=== PATIENT | male | born 1985 | race Two or more races ===

== ENCOUNTER 2017-07-31 20:40 | Emergency (ER) | payer SELFPAY ==
[~2017-07-31] VITALS: Ht 172.7 cm; Wt 90.7 kg
[2017-07-31] MEDS ORDERED: FLUORESCEIN OPHTH TEST STRIP. ONE (21:58)
[2017-07-31] MEDS ORDERED: TETRACAINE 0.5% OPHTH SOLUTION 4ML BOTTLE. ONE (21:58)
[2017-07-31] MEDS ORDERED: TETRACAINE 0.5% OPHTH SOLUTION 4ML BOTTLE. OS ONE (22:00)
[2017-07-31] MEDS ORDERED: EYE-STREAM OPHTH SOLUTION 120 ML BOTTLE. OS ONE (22:00)
[2017-07-31] MEDS ORDERED: FLUORESCEIN OPHTH TEST STRIP. OS ONE (22:00)
[2017-07-31] MEDS ORDERED: DIPHTH,PERTUSS(ACELL),TET TOX 0.5 ML DISP.SYRIN. VAX IM ONE (23:15)
[2017-07-31 23:50] VITALS: BP 119/79
--- NOTE | 2017-08-01 02:20 | ED.ADGEN ---
Past Medical History Past Medical History: No Pertinent History Past Surgical History: No Surgical History Alcohol Use: None Drug Use: None Adult General Chief Complaint Chief Complaint: EYE PROBLEMS HPI HPI Patient is a 31 year old man, with no significant past history, who takes no medications on a regular basis, who presents to the emergency department with a complaint of left eye pain and bleeding. Patient states that about 4 hours ago he was drilling a lock when the tip of the drill bit broke and was flung backwards striking him in the left eye. Patient states that he immediately noted swelling, pain, and blurred vision. He denies injuries to the right eye or any other injuries or complaints. He states that he was unable to drive initially blurred vision, which is why he took sometime presents the emergency department. He does not know his last tetanus booster. Patient denies taking any medications prior to coming to the ED. He states the pain is located in the medial aspect of his eye, and he does have a mild headaches surrounding this area. Denies any nausea or vomiting, any chest pain or short of breath, any dental or neck pain. Review of Systems Review of Systems Constitutional: Denies fever or chills. [] Eyes: Blurred vision in the left eye, left eye pain. HENT: Denies nasal congestion or sore throat. [] Respiratory: Denies cough or shortness of breath. [] Cardiovascular: Denies chest pain or edema. [] GI: Denies abdominal pain, nausea, vomiting, bloody stools or diarrhea. [] : Denies dysuria. [] Musculoskeletal: Denies back pain or joint pain. [] Integument: Denies rash. [] Neurologic: Denies headache, focal weakness or sensory changes. [] Endocrine: Denies polyuria or polydipsia. [] Lymphatic: Denies swollen glands. [] Psychiatric: Denies depression or anxiety. [] Current Medications Current Medications Current Medications Medications (Trade) Dose Ordered Sig/Hugo Start Time Stop Time Status Last Admin Dose Admin Balanced Salt Solution (Eye-Stream) 120 ml 1X ONCE 07/31/17 22:00 07/31/17 22:01 DC Diphtheria/ Tetanus/Acell Pertussis (Boostrix) 0.5 ml ONCE ONCE 07/31/17 23:15 07/31/17 23:16 DC 07/31/17 23:23 0.5 ML Fluorescein Sodium (Ful-Aimee) 1 strip STK-MED ONCE 07/31/17 21:58 07/31/17 21:59 DC Tetracaine HCl (Tetracaine) 40 drop STK-MED ONCE 07/31/17 21:58 07/31/17 21:59 DC Allergies Allergies Allergies Coded Allergies Type Severity Reaction Last Updated Verified No Known Drug Allergies 07/31/17 No Physical Exam Physical Exam Constitutional: Well developed, well nourished, no acute distress, non-toxic appearance. [] HENT: Normocephalic, atraumatic, bilateral external ears normal, oropharynx moist, no oral exudates, nose normal. [] Eyes: PERRLA, EOMI, patient with irritation of the conjunctiva, with half centimeter vertical laceration noted to the medial aspect of the cornea. No other abnormalities identified, no evidence of foreign body noted. Negative Clark sign. Patient's vision is 20/20 in the right eye, and 20/50 in the left. There is no active bleeding or other signs of evolving changes at this time. Neck: Normal range of motion, no tenderness, supple, no stridor. [] Cardiovascular:Heart rate regular rhythm, no murmur [] Lungs & Thorax: Bilateral breath sounds clear to auscultation [] Abdomen: Bowel sounds normal, soft, no tenderness, no masses, no pulsatile masses. [] Skin: Warm, dry, no erythema, no rash. [] Back: No tenderness, no CVA tenderness. [] Extremities: No tenderness, no cyanosis, no clubbing, ROM intact, no edema. [] Neurologic: Alert and oriented X 3, normal motor function, normal sensory function, no focal deficits noted. [] Psychologic: Affect normal, judgement normal, mood normal. [] Current Patient Data Vital Signs Vital Signs Date Time Temp Pulse Resp B/P (MAP) Pulse Ox O2 Delivery O2 Flow Rate FiO2 07/31/17 23:50 82 18 119/79 (92) 100 Room Air 07/31/17 21:30 98.4 98.4 EKG EKG Not indicated.[] Radiology/Procedures Radiology/Procedures Not indicated.[] Course & Med Decision Making Course & Med Decision Making Pertinent Labs and Imaging studies reviewed. (See chart for details) Patient with evidence of corneal laceration, without evidence of globe perforation. I did discuss findings as above with Dr. Logan, on-call for ophthalmology. He states that with this type of traumatic injury, and concern for possible need for corneal repair, that transfer to be most appropriate. I did speak with Dr. Chapman of ophthalmology, who is agreeable seen the patient has a consultation, requests the patient come to the emergency department for evaluation, as part of a trauma evaluation. I did speak with Hilda, the trauma triage nurse honing machine operator tool for , patient was accepted to the service of Dr. Cloud of the trauma service for evaluation with consultation ophthalmology as stated. I did discuss this with patient, patient's pain is currently a 1 without 3 after receiving tetracaine. I did discuss with patient the importance of prompt transfer to for evaluation, at this time vital signs are stable and he is comfortable, therefore it is appropriate for him to be transferred via private vehicle. Patient is agreeable this plan, as significant other bedside will be able to transport. Patient did sign transfer paperwork, was given clear and detailed discharge instructions, and discharged to proceed directly to for evaluation by ophthalmology and trauma service. Dragon Disclaimer Dragon Disclaimer This electronic medical record was generated, in whole or in part, using a voice recognition dictation system. Departure Impression: Primary Impression: Corneal laceration of left eye Disposition: 05 TRANSFER OTHER Condition: STABLE DAWOOD BABIN DO Aug 01, 2017 02:20
== END 2017-07-31 23:56 | disposition home or self-care (01) ==
LOC: ER 20:40
DX: S05.32XA Ocular laceration without prolapse or loss of intraocular tissue, left eye, initial encounter (principal); W45.8XXA Other foreign body or object entering through skin, initial encounter; Y93.89 Activity, other specified; Y92.89 Other specified places as the place of occurrence of the external cause; Y99.8 Other external cause status
CPT/HCPCS: 90471; 90715; 99285-25

== ENCOUNTER → 2018-04-22 | Outpatient (CLI) | payer OTHER | END | disposition home or self-care (01) | LOC: CT 15:10 | DX: S09.90XD Unspecified injury of head, subsequent encounter (principal); G44.311 Acute post-traumatic headache, intractable; X58.XXXD Exposure to other specified factors, subsequent encounter | CPT/HCPCS: 70450 ==

== ENCOUNTER → 2019-08-04 | Outpatient (CLI) | payer BC ==
--- NOTE | 2019-08-04 15:05 | KCIC ---
EXAM: Lumbar spine, 3 views; right thumb, 3 views. HISTORY: Blunt trauma. COMPARISON: None. FINDINGS: Lumbar spine: 3 views of the lumbar spine are obtained. There is no listhesis. The vertebral bodies are normal in height. There are small superior endplate Schmorl's nodes at multiple levels. There is a small sclerotic lesion at the superior aspect of T12 which is also likely due to a Schmorl's node. There is mild chronic anterior wedging of L1. Right thumb: 3 views of the right thumb are obtained. There is no fracture, dislocation or subluxation. There is a tiny density at the base of the first metacarpal, the appearance of which favors artifact or a tiny ossicle. IMPRESSION: 1. No acute osseous finding. 2. Mild chronic anterior wedging of L1 and mild multilevel endplate remodeling with Schmorl's node formation. Electronically signed by: Janice Ya MD (08/04/2019 3:02 PM) [id number]
== END | disposition home or self-care (01) ==
LOC: KCIC 13:06
PROVIDERS: ATTEND Family Medicine
DX: M79.644 Pain in right finger(s) (principal); M54.5 Low back pain
CPT/HCPCS: 72100; 73140